=== PATIENT | male | born 1965 | race Caucasian/White ===

== ENCOUNTER 2018-01-27 09:13 | Emergency (ER) | payer OTHER ==
[~2018-01-27] VITALS: Ht 182.9 cm; Wt 104.5 kg
[~2018-01-27 09:13] MED LIST: ALPR0.5T8 PO; METO50 PO; OLAN10TA3 PO
[2018-01-27 10:32] VITALS: BP 158/101
[2018-01-27] MEDS ORDERED: LORazepam 2 MG/ML VIAL IM ONE (10:45)
== END 2018-01-27 11:15 | disposition home or self-care (01) ==
LOC: EMS 09:15
DX: F41.9 Anxiety disorder, unspecified (principal); F20.9 Schizophrenia, unspecified; I10 Essential (primary) hypertension; Z88.8 Allergy status to other drugs, medicaments and biological substances
CPT/HCPCS: 96372; 99284; J2060

== ENCOUNTER 2019-03-19 13:15 | Emergency (ER) | payer OTHER ==
[~2019-03-19] VITALS: Ht 182.9 cm; Wt 100.0 kg
[~2019-03-19 13:15] MED LIST changes: -ALPR0.5T8 PO; -OLAN10TA3 PO
[2019-03-19 13:21] VITALS: BP 165/119
== END 2019-03-19 15:30 | disposition left against medical advice (07) ==
LOC: EMS 13:15
DX: F41.9 Anxiety disorder, unspecified (principal); F20.9 Schizophrenia, unspecified; I10 Essential (primary) hypertension; Z87.891 Personal history of nicotine dependence; Z53.21 Procedure and treatment not carried out due to patient leaving prior to being seen by health care provider

== ENCOUNTER 2019-03-22 08:33 | Emergency (ER) | payer OTHER ==
[~2019-03-22] VITALS: Ht 185.4 cm; Wt 100.0 kg
[2019-03-22] MEDS ORDERED: ALPR0.5T8 PO (09:07)
[2019-03-22] MEDS ORDERED: ALPRAZolam 0.5 MG TABLET PO ONE (11:45)
[2019-03-22 13:15] VITALS: BP 167/116
[2019-03-22] MEDS ORDERED: METOPROLOL TARTRATE 50 MG TABLET PO ONE (13:15)
[2019-03-26] MEDS ORDERED: LISI-662 PO (11:12)
[2019-03-26] MEDS ORDERED: METO25 PO (11:13)
[2019-03-26] MEDS ORDERED: ASPI81 PO (11:13)
== END 2019-03-22 13:30 | disposition home or self-care (01) ==
LOC: EMS 08:36
DX: F41.9 Anxiety disorder, unspecified (principal); I10 Essential (primary) hypertension; F20.9 Schizophrenia, unspecified; Z88.8 Allergy status to other drugs, medicaments and biological substances

== ENCOUNTER 2019-03-31 00:55 | Emergency (ER) | payer OTHER ==
[~2019-03-31] VITALS: Ht 182.9 cm; Wt 102.3 kg
[~2019-03-31 00:55] MED LIST changes: +ASPI81 PO; +LISI-662 PO; +METO25 PO; -METO50 PO
[2019-03-31] MEDS ORDERED: CLON.5 PO (01:07)
[2019-03-31] MEDS ORDERED: HydrOXYzine PAMOATE 50 MG CAPSULE PO ONE (01:45)
[2019-03-31] MEDS ORDERED: METOPROLOL TARTRATE 50 MG TABLET PO ONE (01:45)
[2019-03-31] MEDS ORDERED: LISINOPRIL 10 MG TABLET PO ONE (01:45)
[2019-03-31 03:33] VITALS: BP 161/111
== END 2019-03-31 04:10 | disposition home or self-care (01) ==
LOC: EMS 00:57
DX: S00.31XA Abrasion of nose, initial encounter (principal); S00.81XA Abrasion of other part of head, initial encounter; F41.9 Anxiety disorder, unspecified; I10 Essential (primary) hypertension; F20.9 Schizophrenia, unspecified; F17.210 Nicotine dependence, cigarettes, uncomplicated; Z88.8 Allergy status to other drugs, medicaments and biological substances; W19.XXXA Unspecified fall, initial encounter; Y93.89 Activity, other specified; Y92.89 Other specified places as the place of occurrence of the external cause; Y99.8 Other external cause status

== ENCOUNTER 2019-04-11 11:48 | Emergency (ER) | payer OTHER ==
[~2019-04-11] VITALS: Ht 182.9 cm; Wt 106.8 kg
[~2019-04-11 11:48] MED LIST changes: -ASPI81 PO; +CLON.5 PO; -LISI-662 PO; -METO25 PO
[2019-04-11] MEDS ORDERED: ALPR0.5T8 PO (12:27)
[2019-04-11] MEDS ORDERED: METO25 PO (12:27)
[2019-04-11 16:52] LABS: BASOPHILS % (AUTO) 0.8 % (0.0-2.0); EOSINOPHILS % (AUTO) 1.9 % (1.0-6.0); HEMATOCRIT 38.7 % (41-53); HEMOGLOBIN 13.1 g/dL (13.5-17.5); LYMPHOCYTES # (AUTO) 1.5 K/uL (1.0-4.8); LYMPHOCYTES % (AUTO) 32.8 % (22.0-44.0); MEAN CORPUSCULAR HGB CONC 33.8 G/dL (31.0-37.0); MEAN CORPUSCULAR VOLUME 95 fL (80-100); MONOCYTES # (AUTO) 0.5 K/uL (0.1-1.0); MONOCYTES % (AUTO) 10.9 % (2.0-9.0); NEUTROPHILS # (AUTO) 2.5 K/uL (1.8-7.7); NEUTROPHILS % (AUTO) 53.6 % (40.0-70.0); PLATELET COUNT (AUTO) 117 K/uL (150-450); RED BLOOD CELL COUNT(AUTO) 4.08 MIL/uL (4.50-5.90); RED CELL DISTRIBUTION WIDTH 13.7 % (11.5-14.5)
[2019-04-11 17:50] LABS: ANION GAP 9 mmol/L (8-16); CALCIUM, TOTAL 8.9 mg/dL (8.8-10.5); CARBON DIOXIDE 28 mmol/L (22-29); CHLORIDE 105 mmol/L (98-107); CREATININE 0.96 mg/dL (0.60-1.30); GLOMERULAR FILTR. RATE CALC > 60 mL/min (>60); GLUCOSE,RANDOM 100 mg/dL (70-110); POTASSIUM 3.5 mmol/L (3.5-5.1); SODIUM SERUM 142 mmol/L (136-145); UREA NITROGEN, BLOOD 13 mg/dL (7-18)
[2019-04-11 17:56] LABS: ALANINE AMINOTRANSFERASE 74 U/L (12-78); ALBUMIN 3.8 g/dL (3.4-5.0); ALKALINE PHOSPHATASE 99 U/L (46-116); ASPARTATE AMINOTRANSFERASE 50 U/L (15-37); TOTAL PROTEIN, SERUM 7.3 g/dL (6.4-8.2)
[2019-04-11] MEDS: METOPROLOL TARTRATE 25 MG TABLET PO ONE (18:05)
[2019-04-11 18:39] VITALS: BP 170/98
== END 2019-04-11 18:44 | disposition home or self-care (01) ==
LOC: EMS 11:50
DX: L03.115 Cellulitis of right lower limb (principal); L03.116 Cellulitis of left lower limb; R60.0 Localized edema; I10 Essential (primary) hypertension; F20.9 Schizophrenia, unspecified; F41.9 Anxiety disorder, unspecified; F17.210 Nicotine dependence, cigarettes, uncomplicated; Z88.8 Allergy status to other drugs, medicaments and biological substances
CPT/HCPCS: 93970

== ENCOUNTER 2019-04-18 03:18 | Emergency (ER) | payer OTHER ==
[~2019-04-18] VITALS: Ht 185.4 cm; Wt 102.3 kg
[~2019-04-18 03:18] MED LIST changes: +ALPR0.5T8 PO; -CLON.5 PO; +METO25 PO
[2019-04-18 06:03] LABS: BASOPHILS % (AUTO) 0.9 % (0.0-2.0); EOSINOPHILS % (AUTO) 3.1 % (1.0-6.0); HEMATOCRIT 40.6 % (41-53); HEMOGLOBIN 13.5 g/dL (13.5-17.5); LYMPHOCYTES # (AUTO) 1.2 K/uL (1.0-4.8); LYMPHOCYTES % (AUTO) 33.1 % (22.0-44.0); MEAN CORPUSCULAR HEMOGLOBIN 32.5 pg (26.0-34.0); MEAN CORPUSCULAR HGB CONC 33.2 G/dL (31.0-37.0); MEAN CORPUSCULAR VOLUME 98 fL (80-100); MONOCYTES # (AUTO) 0.5 K/uL (0.1-1.0); MONOCYTES % (AUTO) 12.7 % (2.0-9.0); NEUTROPHILS # (AUTO) 1.9 K/uL (1.8-7.7); NEUTROPHILS % (AUTO) 50.2 % (40.0-70.0); RED BLOOD CELL COUNT(AUTO) 4.14 MIL/uL (4.50-5.90)
[2019-04-18 06:19] LABS: ANION GAP 8 mmol/L (8-16); CALCIUM, TOTAL 9.1 mg/dL (8.8-10.5); CARBON DIOXIDE 28 mmol/L (22-29); CHLORIDE 107 mmol/L (98-107); CREATININE 1.02 mg/dL (0.60-1.30); GLOMERULAR FILTR. RATE CALC > 60 mL/min (>60); GLUCOSE,RANDOM 92 mg/dL (70-110); POTASSIUM 3.8 mmol/L (3.5-5.1); SODIUM SERUM 143 mmol/L (136-145); UREA NITROGEN, BLOOD 15 mg/dL (7-18)
[2019-04-18 06:24] LABS: ALANINE AMINOTRANSFERASE 70 U/L (12-78); ALBUMIN 3.6 g/dL (3.4-5.0); ALKALINE PHOSPHATASE 87 U/L (46-116); ASPARTATE AMINOTRANSFERASE 45 U/L (15-37); BILIRUBIN,TOTAL 0.5 mg/dL (0.1-1.0); TOTAL PROTEIN, SERUM 7.2 g/dL (6.4-8.2)
[2019-04-18 06:27] LABS: B-TYPE NATRIURETIC PEPTIDE 67 pg/mL (0-100)
[2019-04-18 06:31] LABS: PLATELET COUNT (AUTO) 94 K/uL (150-450)
[2019-04-18 06:45] VITALS: BP 145/97
[2019-04-18] MEDS ORDERED: IBUPROFEN 600 MG TABLET PO ONE (06:45)
== END 2019-04-18 07:00 | disposition home or self-care (01) ==
LOC: EMS 03:21
DX: R07.89 Other chest pain (principal); I10 Essential (primary) hypertension; F20.9 Schizophrenia, unspecified; F41.9 Anxiety disorder, unspecified; F17.210 Nicotine dependence, cigarettes, uncomplicated; Z88.8 Allergy status to other drugs, medicaments and biological substances
CPT/HCPCS: 36415; 71045; 80053; 83880; 84484; 85025; 93005; 99284; 99406; G0480

== ENCOUNTER 2019-05-09 17:53 | Inpatient (IN) | payer OTHER ==
[~2019-05-09] VITALS: Ht 177.8 cm; Wt 90.2 kg
[2019-05-09] MEDS ORDERED: ALPR0.5T8 PO (18:03)
[2019-05-09] MEDS ORDERED: METO25 PO (18:03)
[2019-05-09] MEDS ORDERED: ASPIRIN 81 MG CHEWABLE TABLET PO ONE (19:45)
[2019-05-09] MEDS ORDERED: LABETALOL HCL 5 MG/ML 20 ML VIAL IVP ONE (19:45)
[2019-05-09 20:23] LABS: BASOPHILS % (AUTO) 0.5 % (0.0-2.0); EOSINOPHILS % (AUTO) 1.2 % (1.0-6.0); HEMATOCRIT 43.7 % (41-53); HEMOGLOBIN 14.5 g/dL (13.5-17.5); LYMPHOCYTES # (AUTO) 1.2 K/uL (1.0-4.8); LYMPHOCYTES % (AUTO) 18.5 % (22.0-44.0); MEAN CORPUSCULAR HEMOGLOBIN 32.3 pg (26.0-34.0); MEAN CORPUSCULAR HGB CONC 33.3 G/dL (31.0-37.0); MEAN CORPUSCULAR VOLUME 97 fL (80-100); MONOCYTES % (AUTO) 14.6 % (2.0-9.0); NEUTROPHILS # (AUTO) 4.4 K/uL (1.8-7.7); NEUTROPHILS % (AUTO) 65.2 % (40.0-70.0); PLATELET COUNT (AUTO) 123 K/uL (150-450); RED BLOOD CELL COUNT(AUTO) 4.49 MIL/uL (4.50-5.90); RED CELL DISTRIBUTION WIDTH 14.1 % (11.5-14.5)
[2019-05-09 20:37] LABS: ANION GAP 6 mmol/L (8-16); CARBON DIOXIDE 29 mmol/L (22-29); CHLORIDE 106 mmol/L (98-107); CREATININE 1.02 mg/dL (0.60-1.30); GLOMERULAR FILTR. RATE CALC > 60 mL/min (>60); GLUCOSE,RANDOM 96 mg/dL (70-110); INR 1.1 (0.9-1.1); POTASSIUM 4.1 mmol/L (3.5-5.1); PROTHROMBIN TIME 11.3 SEC (9.4-11.6); SODIUM SERUM 141 mmol/L (136-145); UREA NITROGEN, BLOOD 18 mg/dL (7-18)
[2019-05-09] MEDS ORDERED: HydrALAZINE HCL 20 MG/ML VIAL IVP ONE (20:45)
[2019-05-09 20:47] LABS: ALANINE AMINOTRANSFERASE 83 U/L (12-78); ALBUMIN 3.9 g/dL (3.4-5.0); ALKALINE PHOSPHATASE 99 U/L (46-116); ASPARTATE AMINOTRANSFERASE 47 U/L (15-37); BILIRUBIN,TOTAL 0.7 mg/dL (0.1-1.0); LIPASE 116 U/L (73-393); TOTAL PROTEIN, SERUM 7.9 g/dL (6.4-8.2)
[2019-05-09 21:03] LABS: B-TYPE NATRIURETIC PEPTIDE 22 pg/mL (0-100)
[2019-05-09 21:07] LABS: PLATELET MORPHOLOGY COMMENT LARGE PLTS PRESENT
[2019-05-09] MEDS ORDERED: LORazepam 2 MG/ML VIAL IVP ONE (21:15)
[2019-05-09] MEDS ORDERED: ATORVASTATIN CALCIUM 20 MG TABLET PO SCH (21:30)
[2019-05-09] MEDS ORDERED: AmLODIPine BESYLATE 10 MG TABLET PO SCH (21:30)
[2019-05-09] MEDS ORDERED: CloNIDine HCL 0.1 MG TABLET PO PRN (21:30)
[2019-05-09] MEDS ORDERED: ACETAMINOPHEN 325 MG TABLET PO PRN (21:45)
[2019-05-09] MEDS ORDERED: LORazepam 2 MG/ML VIAL IVP PRN (21:45)
[2019-05-09] MEDS ORDERED: MAGNESIUM HYDROXIDE SUSPENSION 30 ML UDCUP PO PRN (21:45)
[2019-05-09] MEDS: HEPARIN SODIUM,PORCINE 5,000 UNITS/ML VIAL SQ SCH (23:35)
[2019-05-10 00:59] VITALS: BP 140/94
[2019-05-10 04:17] VITALS: BP 131/84
[2019-05-10 07:07] VITALS: BP 118/74
[2019-05-10] MEDS: HEPARIN SODIUM,PORCINE 5,000 UNITS/ML VIAL SQ SCH (08:15)
[2019-05-10] MEDS ORDERED: ASPIRIN 81 MG CHEWABLE TABLET PO SCH (09:00)
[2019-05-10] MEDS ORDERED: DOCUSATE SODIUM 100 MG CAPSULE PO SCH (09:00)
[2019-05-10] MEDS ORDERED: FAMOTIDINE 20 MG TABLET PO SCH (09:00)
[2019-05-10 11:24] VITALS: BP 134/81
[2019-05-10] MEDS ORDERED: ATOR20TA86 PO (12:52)
[2019-05-10] MEDS ORDERED: ASPI81 PO (12:52)
[2019-05-10] MEDS ORDERED: AMLO-512 PO (12:52)
== END 2019-05-10 13:50 | disposition home or self-care (01) | DRG 199 ==
LOC: EMS 17:53 → 5S 21:30
PROVIDERS: ADMIT Internal Medicine; ATTEND Internal Medicine
DX: I16.0 Hypertensive urgency (principal); F20.9 Schizophrenia, unspecified; Z91.19 Patient's noncompliance with other medical treatment and regimen; F14.90 Cocaine use, unspecified, uncomplicated; F17.200 Nicotine dependence, unspecified, uncomplicated; F41.9 Anxiety disorder, unspecified; I10 Essential (primary) hypertension; Z86.73 Personal history of transient ischemic attack (TIA), and cerebral infarction without residual deficits
CPT/HCPCS: 70450; 70551; 93005; 96374; 96375; G0378; G0480; J0360; J1644; J2060; J3490

== ENCOUNTER 2020-03-15 12:45 | Inpatient (IN) | payer OTHER ==
[~2020-03-15] VITALS: Ht 172.7 cm; Wt 93.5 kg
[~2020-03-15 12:45] MED LIST changes: +AMLO10TA7 PO; +ASPI-728 PO; +ATOR20TA86 PO; -METO25 PO
[2020-03-15 13:23] LABS: BASOPHILS % (AUTO) 0.9 % (0.0-2.0); EOSINOPHILS % (AUTO) 2.6 % (1.0-6.0); HEMATOCRIT 45.4 % (41-53); HEMOGLOBIN 15.1 g/dL (13.5-17.5); LYMPHOCYTES % (AUTO) 22.5 % (22.0-44.0); MEAN CORPUSCULAR HGB CONC 33.2 G/dL (31.0-37.0); MEAN CORPUSCULAR VOLUME 96 fL (80-100); MONOCYTES # (AUTO) 0.4 K/uL (0.1-1.0); MONOCYTES % (AUTO) 9.6 % (2.0-9.0); NEUTROPHILS # (AUTO) 2.9 K/uL (1.8-7.7); NEUTROPHILS % (AUTO) 64.4 % (40.0-70.0); PLATELET COUNT (AUTO) 113 K/uL (150-450); RED BLOOD CELL COUNT(AUTO) 4.71 MIL/uL (4.50-5.90); RED CELL DISTRIBUTION WIDTH 13.6 % (11.5-14.5)
[2020-03-15 13:35] LABS: ANION GAP 8 mmol/L (8-16); CALCIUM, TOTAL 9.4 mg/dL (8.8-10.5); CARBON DIOXIDE 29 mmol/L (22-29); CHLORIDE 106 mmol/L (98-107); CREATININE 1.02 mg/dL (0.60-1.30); GLOMERULAR FILTR. RATE CALC > 60 mL/min (>60); GLUCOSE,RANDOM 98 mg/dL (70-110); POTASSIUM 3.9 mmol/L (3.5-5.1); SODIUM SERUM 143 mmol/L (136-145); UREA NITROGEN, BLOOD 19 mg/dL (7-18)
[2020-03-15 13:40] LABS: ALANINE AMINOTRANSFERASE 106 U/L (12-78); ALBUMIN 4.2 g/dL (3.4-5.0); ALKALINE PHOSPHATASE 126 U/L (46-116); ASPARTATE AMINOTRANSFERASE 62 U/L (15-37); BILIRUBIN,TOTAL 0.4 mg/dL (0.1-1.0); TOTAL PROTEIN, SERUM 8.6 g/dL (6.4-8.2)
[2020-03-15] MEDS ORDERED: ASPIRIN 325 MG TABLET PO ONE (14:00)
[2020-03-15] MEDS ORDERED: ONDANSETRON HCL 4 MG/2 ML VIAL IVP PRN ×2 (14:00→16:15)
[2020-03-15] MEDS ORDERED: ACETAMINOPHEN 325 MG TABLET PO PRN ×2 (14:00→16:15)
[2020-03-15] MEDS ORDERED: 0.9% SODIUM CHLORIDE 10 ML SYRINGE IVP PRN ×2 (14:00→16:15)
[2020-03-15] MEDS ORDERED: ATROPINE SULFATE 0.1 MG/ML 10 ML SYRINGE IVP ONE (14:52)
[2020-03-15] MEDS ORDERED: EPINEPHrine 1:10,000 [1 MG/10 ML] SYRINGE ONE (14:52)
[2020-03-15] MEDS ORDERED: ENALAPRILAT DIHYDRATE 1.25 MG/ML 2 ML VIAL IVP PRN (16:00)
[2020-03-15] MEDS ORDERED: IPRATROPIUM BROMIDE 0.5 MG/2.5 ML NEB SOLUTION NEB PRN (16:15)
[2020-03-15] MEDS ORDERED: MAGNESIUM HYDROXIDE SUSPENSION 30 ML UDCUP PO PRN (16:15)
[2020-03-15] MEDS ORDERED: BISACODYL 10 MG RECTAL RECTAL SUPPOSITORY PR PRN (16:15)
[2020-03-15] MEDS ORDERED: ALBUTEROL SULFATE 2.5 MG/0.5 ML NEB SOLUTION NEB PRN (16:15)
[2020-03-15] MEDS ORDERED: DOCUSATE SODIUM 100 MG CAPSULE PO PRN (16:15)
[2020-03-15 19:01] VITALS: BP 175/107
[2020-03-15] MEDS: ATORVASTATIN CALCIUM 40 MG TABLET PO SCH (21:33)
[2020-03-15] MEDS: ENALAPRILAT DIHYDRATE 1.25 MG/ML VIAL IVP PRN (22:57)
[2020-03-15 23:55] VITALS: BP 161/111
[2020-03-16 04:46] VITALS: BP 140/103
[2020-03-16 06:42] LABS: BASOPHILS % (AUTO) 0.8 % (0.0-2.0); EOSINOPHILS % (AUTO) 3.5 % (1.0-6.0); HEMATOCRIT 42.4 % (41-53); HEMOGLOBIN 14.1 g/dL (13.5-17.5); LYMPHOCYTES # (AUTO) 1.2 K/uL (1.0-4.8); LYMPHOCYTES % (AUTO) 26.9 % (22.0-44.0); MEAN CORPUSCULAR HEMOGLOBIN 32.1 pg (26.0-34.0); MEAN CORPUSCULAR HGB CONC 33.4 G/dL (31.0-37.0); MEAN CORPUSCULAR VOLUME 96 fL (80-100); MONOCYTES # (AUTO) 0.4 K/uL (0.1-1.0); NEUTROPHILS # (AUTO) 2.6 K/uL (1.8-7.7); NEUTROPHILS % (AUTO) 59.8 % (40.0-70.0); PLATELET COUNT (AUTO) 108 K/uL (150-450); RED CELL DISTRIBUTION WIDTH 13.6 % (11.5-14.5)
[2020-03-16 06:51] LABS: HEMOGLOBIN A1C 5.3 % (3.8-5.6)
[2020-03-16 07:05] LABS: ALANINE AMINOTRANSFERASE 103 U/L (12-78); ALBUMIN 3.8 g/dL (3.4-5.0); ALKALINE PHOSPHATASE 108 U/L (46-116); ANION GAP 6 mmol/L (8-16); ASPARTATE AMINOTRANSFERASE 69 U/L (15-37); BILIRUBIN,TOTAL 0.5 mg/dL (0.1-1.0); CALCIUM, TOTAL 9.6 mg/dL (8.8-10.5); CARBON DIOXIDE 30 mmol/L (22-29); CHLORIDE 105 mmol/L (98-107); CHOLESTEROL 150 mg/dL (131-200); CREATININE 0.92 mg/dL (0.60-1.30); FREE T4 (FREE THYROXINE) 1.06 ng/dL (0.76-1.46); GLOMERULAR FILTR. RATE CALC > 60 mL/min (>60); GLUCOSE,RANDOM 94 mg/dL (70-110); HDL CHOLESTEROL 50 mg/dL (40-60); LDL CHOL (CALC.) 86 mg/dL (0-130); POTASSIUM 3.9 mmol/L (3.5-5.1); SODIUM SERUM 141 mmol/L (136-145); THYROID STIMULATING HORMONE 1.88 uIU/mL (0.36-3.74); TOTAL PROTEIN, SERUM 7.7 g/dL (6.4-8.2); TRIGLYCERIDES 70 mg/dL (15-150); UREA NITROGEN, BLOOD 19 mg/dL (7-18)
[2020-03-16 07:29] VITALS: BP 156/108
[2020-03-16] MEDS ORDERED: PNEUMOCOCCAL VACCINE POLYVALENT 0.5 ML VIAL [PPSV23] IM ONE (07:30)
[2020-03-16] MEDS ORDERED: PANTOPRAZOLE SODIUM 40 MG DR TABLET PO SCH (09:00)
[2020-03-16] MEDS ORDERED: ASPIRIN 81 MG CHEWABLE TABLET PO SCH (09:00)
[2020-03-16 11:56] VITALS: BP 136/79
[2020-03-16 15:31] VITALS: BP 172/124
[2020-03-16] MEDS: ENALAPRILAT DIHYDRATE 1.25 MG/ML VIAL IVP PRN (15:44)
[2020-03-16] MEDS: ATORVASTATIN CALCIUM 40 MG TABLET PO SCH (20:28)
[2020-03-16 20:38] VITALS: BP 156/120
[2020-03-16] MEDS ORDERED: LISINOPRIL 5 MG TABLET PO SCH (21:00)
[2020-03-17 00:23] VITALS: BP 158/102
[2020-03-17] MEDS ORDERED: LORazepam 2 MG/ML VIAL ONE (02:46)
[2020-03-17 02:48] LABS: GLUCOMETER DEV NAME(LOC) 5S.2A; GLUCOSE,POINT OF CARE 121 MG/DL (70-110)
[2020-03-17] MEDS ORDERED: LABETALOL HCL 5 MG/ML 20 ML VIAL IVP ONE (03:00)
[2020-03-17] MEDS ORDERED: NiCARDipine HCL 25 MG in DEXTROSE 5%-WATER 240 ML IV PRN ×2 (03:30→05:45)
[2020-03-17] MEDS ORDERED: LevETIRAcetam 1,500 MG in DEXTROSE 5%-WATER 100 ML IV ONE (03:30)
[2020-03-17 03:43] LABS: BASOPHILS % (AUTO) 0.5 % (0.0-2.0); EOSINOPHILS % (AUTO) 1.4 % (1.0-6.0); HEMATOCRIT 44.8 % (41-53); HEMOGLOBIN 14.8 g/dL (13.5-17.5); LYMPHOCYTES % (AUTO) 15.7 % (22.0-44.0); MEAN CORPUSCULAR HEMOGLOBIN 31.7 pg (26.0-34.0); MEAN CORPUSCULAR VOLUME 96 fL (80-100); MONOCYTES # (AUTO) 0.2 K/uL (0.1-1.0); MONOCYTES % (AUTO) 3.7 % (2.0-9.0); NEUTROPHILS # (AUTO) 4.8 K/uL (1.8-7.7); NEUTROPHILS % (AUTO) 78.7 % (40.0-70.0); PLATELET COUNT (AUTO) 119 K/uL (150-450); RED BLOOD CELL COUNT(AUTO) 4.66 MIL/uL (4.50-5.90); RED CELL DISTRIBUTION WIDTH 13.5 % (11.5-14.5)
[2020-03-17 03:45] LABS: ANION GAP 14 mmol/L (8-16); CALCIUM, TOTAL 9.4 mg/dL (8.8-10.5); CARBON DIOXIDE 22 mmol/L (22-29); CHLORIDE 100 mmol/L (98-107); CREATININE 1.05 mg/dL (0.60-1.30); GLOMERULAR FILTR. RATE CALC > 60 mL/min (>60); GLUCOSE,RANDOM 188 mg/dL (70-110); POTASSIUM 3.5 mmol/L (3.5-5.1); SODIUM SERUM 136 mmol/L (136-145); UREA NITROGEN, BLOOD 19 mg/dL (7-18)
[2020-03-17] MEDS ORDERED: PROPOFOL 1000 MG/ISO-OSM 100 ML IV PRN (03:45)
[2020-03-17 03:48] LABS: INR 1.1 (0.9-1.1)
[2020-03-17 03:52] LABS: ALANINE AMINOTRANSFERASE 99 U/L (12-78); ALBUMIN 3.9 g/dL (3.4-5.0); ALKALINE PHOSPHATASE 113 U/L (46-116); ASPARTATE AMINOTRANSFERASE 65 U/L (15-37); BILIRUBIN,TOTAL 0.7 mg/dL (0.1-1.0); TOTAL PROTEIN, SERUM 7.9 g/dL (6.4-8.2)
[2020-03-17 05:16] VITALS: BP 154/114
[2020-03-17] MEDS ORDERED: ATROPINE SULFATE 0.1 MG/ML 10 ML SYRINGE IVP ONE (07:31)
[2020-03-17] MEDS ORDERED: ETOMIDATE 2 MG/ML 10 ML VIAL ONE (14:56)
[2020-03-17] MEDS ORDERED: VECURONIUM BROMIDE 10 MG/VIAL ONE (14:56)
[2020-03-17] MEDS ORDERED: LIDOCAINE/PF 2% 5 ML SYRINGE IVP ONE (14:56)
== END 2020-03-17 07:40 | disposition expired | DRG 44 ==
LOC: EMS 12:46 → 5S 16:37 → ICU 17:23
PROVIDERS: ADMIT Internal Medicine; ATTEND Internal Medicine
PROC: 5A1935Z Respiratory Ventilation, Less than 24 Consecutive Hours (ICD-10-PCS; principal; 2020-03-17)
PROC: 0BH17EZ Insertion of Endotracheal Airway into Trachea, Via Natural or Artificial Opening (ICD-10-PCS; 2020-03-17)
PROC: 5A12012 Performance of Cardiac Output, Single, Manual (ICD-10-PCS; 2020-03-17)
DX: I61.9 Nontraumatic intracerebral hemorrhage, unspecified (principal); D69.6 Thrombocytopenia, unspecified; I46.9 Cardiac arrest, cause unspecified; F20.9 Schizophrenia, unspecified; I20.0 Unstable angina; I62.9 Nontraumatic intracranial hemorrhage, unspecified; F41.1 Generalized anxiety disorder; D63.8 Anemia in other chronic diseases classified elsewhere; I10 Essential (primary) hypertension; Z88.8 Allergy status to other drugs, medicaments and biological substances; Z86.73 Personal history of transient ischemic attack (TIA), and cerebral infarction without residual deficits; B19.20 Unspecified viral hepatitis C without hepatic coma; F14.90 Cocaine use, unspecified, uncomplicated; F17.210 Nicotine dependence, cigarettes, uncomplicated
CPT/HCPCS: 70450; 70544; 70547; 70551; 76705; 80074; 82948; 83036; 83735; 84439; 84443; 87081; 92950; 93005; 94002; G0480; J0171; J0461; J0712; J2060; J3490; J7060